=== PATIENT | female | born 1965 | race Asian ===

== ENCOUNTER → 2017-10-13 | Outpatient (REF) ==
[~2017-10-13] MED LIST: ALTACE10 MG PO; CROMOLYN IH; FISH OIL1 IU PO; NEPHRO-VITE1 TA1 PO; NORMODYNE100 MG PO; PRENATAL VITAMI1 TA5 PO; SINGULAIR 110 MG/TAB PO; SINGULAIR10 MG PO; VITAMIN C500 MG PO; XOPENEX 0.0.63 MG/3 IH; ZESTRIL 5MG5 MG PO; ZYRTEC 10MG PO; ZYRTEC5 MG PO
== END ==
LOC: ZLAB.WCH 08:41
DX: Z01.89 Encounter for other specified special examinations (principal)